=== PATIENT | female | born 2000 | race Caucasian/White ===

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

== ENCOUNTER 2022-07-15 19:51 | Emergency (ER) | payer OTHER, SELFPAY ==
[2022-07-15 19:53] VITALS: BP 119/96; PULSE 115; RESP 20; TEMP 36.6; O2SAT 98; BMI 25.0
--- NOTE | 2022-07-15 20:41 | EDS_ITS ---
HPI History of Present Illness Chief Complaint: Shortness of Breath Informant: patient Narrative Narrative: Presents with tremors starting this morning worsening throughout the day. States sweaty throughout the day she has uncontrolled tears from her eyes. 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 History of reported autoimmune disease followed by rheumatology from [facility] [place]. She states due to her work and pains she sent to physical therapy she is not on any immunosuppressants. Reports was told she was too young. She follows neurology at [facility] also. Her PCP writes for her medications. She states she has prodromal symptoms similar to this when she has her focal seizures. She states however would have syncopal episode when she has a seizures none currently. She has not been on steroids for her reported autoimmune systems. She states feels like hands are warm and swelling and myalgias all over her body. No fevers. No sick contacts. Not vaccinated for influenza or COVID states had COVID in the past without any hospitalizations. Prior similar symptoms: Yes PFSH PFSH Home Medications norgestimate-ethinyl estradiol 0.18 mg/0.215mg/0.25mg-35 mcg(28)tablet 1 tab PO DAILY 09/14/19 [History Last Taken Unknown] prednisone 20 mg tablet 40 mg PO DAILY #12 tabs 07/15/22 [Rx Last Taken Unknown] Allergy/AdvReac Type Severity Reaction Status Date / Time No Known Allergies Allergy Verified 07/15/22 19:57 Social History Smoking Status: Never smoker ROS [facility] ED Constitutional Constitutional ED: Denies chills, fever(s) or sweats Eyes Eyes: Denies change in vision ENT ENT ED: Denies dysphagia or sore throat Cardiovascular Cardiovascular: Denies chest pain, leg edema, palpitations or racing heartbeat Respiratory/Chest Respiratory/Chest: Denies cough, dyspnea or dyspnea on exertion Gastrointestinal Gastrointestinal: Denies abdominal pain, diarrhea, nausea or vomiting Genitourinary Genitourinary ED: Denies dysuria, hematuria or urinary frequency Musculoskeletal Musculoskeletal: Reports arthralgias and myalgias; Denies back pain, extremity pain or neck pain Integumentary Denies rash or wounds Neurologic Neurologic: Reports other Details: Tremors ; Denies headache(s), paresthesias or weakness EXAM Physical Exam Const Vital Signs: 07/15/22 19:53 07/15/22 21:17 07/15/22 22:24 Temperature 97.9 F Temperature Source Temporal Pulse Rate 115 H 94 86 Respiratory Rate 20 H 20 H 16 Respiratory Effort Respiratory Depth Respiratory Pattern Blood Pressure 119/96 H 156/109 H 136/90 H Blood Pressure Mean 103 124 105 Pulse Ox 98 94 Oxygen Delivery Method Room Air Room Air 07/15/22 22:24 07/15/22 23:14 Temperature Temperature Source Pulse Rate 86 Respiratory Rate 16 Respiratory Effort Normal Respiratory Depth Normal Respiratory Pattern Normal Blood Pressure 126/84 H Blood Pressure Mean Pulse Ox Oxygen Delivery Method Positive well nourished and well developed General Appearance ED: well developed and NAD HEENT Reports moist mucous membranes HEENT Narrative: No posterior pharyngeal erythema minimal size tonsils no exudates. Airway patent. No swelling. normocephalic and atraumatic Eyes PERRL, EOMs intact bilaterally and conjunctivae normal General Eye ED: Yes normal appearance of both eyes Neck no lymphadenopathy and supple General: Negative for tenderness Chest Wall Chest: Negative for tenderness Resp normal respiratory effort and normal air movement Effort and Inspection: symmetric chest movement; Negative for respiratory distress Cardio regular rate, regular rhythm and no murmurs Peripheral Pulses: pulses 2+ throughout GI normal to inspection, nondistended, normoactive bowel sounds and non-tender Palpation: Negative for guarding or rebound tenderness present Back/Spine no CVA tenderness and no thoracic nor lumbar tenderness Extremity normal to inspection General Extremety ED: Negative for edema or tenderness General Extremity: Negative for edema Neuro oriented x3, CN's II-XII intact bilaterally and no sensory deficits noted Neuro Narrative: No active tremors. Sensorium / Orientation: awake and alert Skin no rashes or lesions noted and no wounds Skin Narrative: Erythema bilateral hands no wounds or ulcerations. MDM MDM MDM Narrative Medical decision making narrative: Interventions / MDM: Differential diagnosis: COVID, influenza, autoimmune flare Diagnosis considered but do not suspect: Focal seizures, has a history of this however no focal deficits currently. My EKG interpretation: N/A Imaging independently reviewed and interpreted by myself: N/A External documents reviewed: N/A Test considered but not ordered:N/A ED course: History reported autoimmune disorder symptomatic. She was given Solu-Medrol. I did check labs which were all. COVID and influenza get it. Fluids given. Re-evaluation: stable and improved symptoms back to her normal baseline. Discussed and with her she gets monthly symptoms specially with her menstrual periods. Discussed we will put her on a burst steroids for a week. However she will need to discuss with her thoracic medicine specialist for long-term treatment. She understands this. All questions were answered. Disposition discussed with patient/family/significant other: Patient Case discussed with consulting clinician: N/A Lab Data Attestation: I reviewed the patient's lab results. Labs: Laboratory Results - last 24 hr 07/15/22 07/15/22 21:15 21:15 WBC 9.1 RBC 4.47 Hgb 13.2 Hct 39.6 MCV 88.6 MCH 29.5 MCHC 33.3 RDW Std Deviation 40.8 RDW Coeff of Kelsey 12.5 Plt Count 295 MPV 9.7 Immature Gran % (Auto) 0.200 Neut % (Auto) 60.4 Lymph % (Auto) 31.8 Coos % (Auto) 6.2 Eos % (Auto) 0.7 Baso % (Auto) 0.7 Absolute Neuts (auto) 5.5 Absolute Lymphs (auto) 2.90 Nucleated RBC % 0 Sodium 141 Potassium 3.6 Chloride 109 H Carbon Dioxide 25.0 Anion Gap 7 BUN 17 Creatinine 0.74 Estim Creat Clear Calc 117.93 Est GFR (MDRD) Af Amer 127 Est GFR (MDRD) Non-Af 105 BUN/Creatinine Ratio 22.8 H Glucose 95 Calcium 9.4 Discharge Plan Triage Chief Complaint: Shortness of Breath ED Provider: John Sorenson Dx/Rx/DC Orders Clinical Impression: Arthralgia, Myalgia, Tremors of nervous system, Autoimmune disorder Instructions: ED Arthralgia, ED Myalgias Prescriptions: New prednisone 20 mg tablet 40 mg PO DAILY Qty: 12 0RF Rx Instructions: Next dose 07/16/2022 No Action norgestimate-ethinyl estradiol 0.18/0.215/0.25 mg-35 mcg (28) tablet 1 tab PO DAILY Label Comments: TAKE 1 TABLET BY MOUTH ONCE DAILY Primary Care Provider: [facility] Doctor,Out of Referrals: [facility] Doctor,Out of [Primary Care Provider] - Activity Restrictions/Additional Instructions: Labs stable COVID and flu negative. Improved with steroids. Take steroids daily for the next 6 days. Follow-up with your thoracic medicine specialist for further discussion with your recurrent symptoms. Disposition Disposition: Home, Self Care Discharge Date/Time: 07/15/22 23:15
[2022-07-15] MEDS: MethylPREDNISolone 125 MG/2 ML Vial 60 MG IV (21:11)
[2022-07-15 21:17] VITALS: BP 156/109; PULSE 94; RESP 20
[2022-07-15 21:27] LABS: Absolute Neutrophil Count 5.5 X10^3/uL (2.0-7.7); Basophil# 0.06 X10^3/uL; Basophil% 0.7 % (0-1); Eosinophil# 0.06 X10^3/uL; Eosinophils% 0.7 % (0-5); Hematocrit 39.6 % (37-47); Hemoglobin 13.2 g/dL (12.0-15.0); Lymphocyte % 31.8 % (19-41); Mean Corp Hgb Conc 33.3 g/dL (32-36); Mean Corpuscular Hgb 29.5 pg (27.0-32.0); Mean Corpuscular Volume 88.6 fL (81-99); Mean Platelet Vol. 9.7 fl (6.2-12.0); Monocyte# 0.57 X10^3/uL; Monocyte% 6.2 % (0-10); NRBC Flagged by Analyzer 0 % (0-5); Neutrophil # 5.52 X10^3/uL (2.7-7.7); Neutrophil % 60.4 % (47-70); Platelet Count 295 K/mm3 (150-450); RBC Distribution Width CV 12.5 % (11.6-14.6); RBC Distribution Width SD 40.8 fl (35.1-43.9); Red Blood Count 4.47 M/mm3 (4.2-5.4); White Blood Count 9.1 K/mm3 (4.4-11.0)
[2022-07-15 21:42] LABS: Anion Gap 7 (5-15); BUN 17 mg/dL (7-18); BUN/Creat Ratio 22.8 RATIO (10-20); Calcium,Total 9.4 mg/dL (8.5-10.1); Chloride 109 mmol/L (98-107); Creatinine, Serum 0.74 mg/dL (0.55-1.02); EST Glomerular Filtration Rate 105 mL/min (>60); Est Glom Filt Rate - Afr Amer 127 mL/min (>60); Estimated Creatinine Clearance 117.93 ml/min; Glucose 95 mg/dL (74-106); Potassium 3.6 mmol/L (3.5-5.1); Sodium Level 141 mmol/L (136-145)
[2022-07-15 22:24] VITALS: BP 136/90; PULSE 86; RESP 16; O2SAT 94
[2022-07-15 23:14] VITALS: BP 126/84; PULSE 86; RESP 16
== END 2022-07-15 23:15 | disposition home or self-care (01) ==
PROVIDERS: Emergency Provider Emergency Medicine; Visit Provider Emergency Medicine
DX: D89.89 Other specified disorders involving the immune mechanism, not elsewhere classified (principal); R06.02 Shortness of breath; M79.10 Myalgia, unspecified site; R25.1 Tremor, unspecified; Z79.52 Long term (current) use of systemic steroids; M25.50 Pain in unspecified joint; Z20.822 Contact with and (suspected) exposure to COVID-19
CPT/HCPCS: 80048; 85025; 87428; 96361; 96374; 99284; J7040; A4216

== ENCOUNTER 2024-09-24 05:20 | Outpatient (CLI) | payer MEDICAID, SELFPAY ==
[2024-09-24 05:34] VITALS: BMI 36.8
[2024-09-24 05:40] VITALS: BP 120/77; PULSE 76; O2SAT 97
[2024-09-24 05:41] VITALS: RESP 16; TEMP 36
[2024-09-24 05:55] LABS: Color, Urine Yellow (Yellow); Glucose, Dipstick Normal (Normal); Ketone-Dipstick Negative (Negative); Leukocyte Esterase-Dipstick 25 /ul (Negative); Nitrite-Dipstick Negative (Negative); Occult Blood-Urine Negative /ul (Negative); Protein-Dipstick 15 mg/dl (Negative); Urine Bilirubin Dipstick Negative (Negative); Urine Clarity Clear (Clear); Urine Urobilinogen 1 mg/dl (Normal)
[2024-09-24 05:56] LABS: Red Blood Cells-Urine 0 SEEN /hpf (0-5)
[2024-09-24 06:37] LABS: Amorphous Sediment 2+; Bacteria 3+ /hpf (None Seen); Mucous, Urine 1+ /hpf (<or=2+); Squamous Epithelial Cells - UA 0-5 SEEN /hpf (5-10); White Blood Cells 0-5 SEEN /hpf (0-5)
--- NOTE | 2024-09-24 07:55 | OB.TRI.NOTE ---
HPI - General HPI Narrative NAILA MCKEON, is a 24 F G1 at 33 weeks gestation who presents with lower abdominal cramps. She denies any loss of fluid, vaginal bleeding or severe pain. Positive movements. PFSH PFSH Home Medications ?Medication ?Instructions ?Recorded ?Last Taken ?Type norgestimate-ethinyl estradiol 1 tab PO DAILY 09/14/19 Unknown History 0.18 mg/0.215mg/0.25mg-35 mcg(28)tablet Held on 09/24/24. Instructions: MD Ordered prednisone 20 mg tablet 40 mg (2 x 20 mg) PO DAILY #12 tabs 07/15/22 Unknown Rx Held on 09/24/24. Instructions: MD Ordered aspirin 81 mg chewable tablet 2 tab PO QDAY 09/24/24 09/22/24 08:00 History (Aspirin Childrens) escitalopram oxalate 20 mg tablet 20 mg PO DAILY 09/24/24 09/22/24 08:00 History (Lexapro) vitamin#30 30 mg iron-10 cap PO 09/24/24 09/22/24 08:00 History mg iron-folic acid 1 mg-omg3 capsule Allergy/AdvReac Type Severity Reaction Status Date / Time No Known Allergies Allergy Verified 09/24/24 05:31 Social History Smoking Status: Never smoker ROS Eyes Eyes: Denies blurry vision Cardiovascular Cardiovascular: Reports none; Denies chest pain at rest, chest pain with activity or dizziness Respiratory/Chest Respiratory/Chest: Denies cough or dyspnea Gastrointestinal Gastrointestinal: Reports none and other; Denies diarrhea or vomiting Genitourinary Genitourinary: Denies dysuria Musculoskeletal Musculoskeletal: Reports none Integumentary Integumentary: Reports none; Denies rash Neurologic Neurologic: Denies dizziness, headache(s) or other visual disturbances Psychiatric Psychiatric: Reports none Physical Exam Const alert and no apparent distress General Appearance: cooperative Orientation / Consciousness: awake Exam Limitations: no limitations HEENT normocephalic Eyes General Eye: normal appearance of both eyes Neck full ROM Chest inspection of chest normal Resp normal respiratory effort and normal air movement Effort and Inspection: symmetric chest movement Auscultation: clear to auscultation bilaterally Cardio regular rate GI soft to palpation, non-tender and non-distended Inspection: and other Back/Spine normal ROM Extremity full ROM, normal capillary refill and no calf tenderness Skin no rashes or lesions noted Neuro oriented x3 and CN's II-XII intact bilaterally Psych mental status grossly normal NST FHR Rate Baby A Baseline: 125 Variability:: Moderate Accelerations:: 15 x 15 Decelerations:: None NST Reactive:: Yes Uterine Activity:: irritability Assessment & Plan (1) 33 weeks gestation of : (2) Abdominal cramping: (3) Dehydration: PLAN: Plan Patient taking PO fluids over IV C/o round ligament pain No contractions palpated D.C home with follow up in office this week.
== END 2024-09-24 06:50 | disposition home or self-care (01) ==
LOC: WPOUT 05:26 → WP 05:27
PROVIDERS: Visit Provider Advanced Practice Midwife
DX: O99.891 Other specified diseases and conditions complicating pregnancy (principal); O99.283 Endocrine, nutritional and metabolic diseases complicating pregnancy, third trimester; R10.30 Lower abdominal pain, unspecified; E86.0 Dehydration; Z79.899 Other long term (current) drug therapy; Z79.82 Long term (current) use of aspirin; Z3A.33 33 weeks gestation of pregnancy
CPT/HCPCS: 59025; 59050; 81001; 99221; G0378

== ENCOUNTER 2024-10-13 10:45 | Outpatient (CLI) | payer MEDICAID, SELFPAY ==
[2024-10-13 11:14] VITALS: BP 134/82; PULSE 72
--- NOTE | 2024-10-13 11:14 | US_ITS ---
PROCEDURE: BIOPHYSICAL PROF W/O NON STRES 10/13/2024 REASON FOR EXAM: NON REACTIVE NST TECHNIQUE: High resolution obstetric ultrasound performed using a 2D transducer. Standard views obtained, including biometry, anatomy survey, and Doppler studies. COMPARISON: None FINDINGS Number: 1 Position: Vertex Placental Position: Anterior and not low-lying. Placental Abnormalities: None ESTIMATED GESTATIONAL AGE: Baseline: 35 weeks and 6 days ESTIMATED DATE OF DELIVERY: Baseline: November 11, 2024 BIOPHYSICAL ASSESSMENT: Amniotic Fluid Volume: 8.9 cm Amniotic Fluid Index: 20.8 (8-24 cm normal range) Cardiac Motion: 130 beats per minute (average) Trunk and Limb Motion: Present. MATERNAL ANATOMY: Adnexa: Neither maternal ovary is successfully identified. Biophysical profile: Breathing movements: 2 Gross body movements: 2 tone: 2 Amniotic fluid volume: 2 Total score: 8/8 US/Biophysical Prof W/O Non Stres IMPRESSION: Normal biophysical profile. Reading Location: [facility]
[2024-10-13 11:17] VITALS: BMI 36.6
--- NOTE | 2024-10-13 12:58 | OB.TRI.HP_ITS ---
HPI - General General Date of Service: 10/13/24 HPI Narrative NAILA MCKEON, is a 24 F @ 35.6 weeks who presents from office for BPP and NST due to non reactive NST and low baseline in office. pt has h/o Polyhydramnios PFSH PFSH Home Medications ?Medication ?Instructions ?Recorded ?Last Taken ?Type aspirin 81 mg chewable tablet 2 tab PO QDAY 09/24/24 0 10/12/24 History (Aspirin Childrens) escitalopram oxalate 20 mg tablet 20 mg PO DAILY 09/2410/12/24 History (Lexapro) vitamin#30 30 mg iron-10 1 cap PO DAILY pregn flakita 09/24/24 10/12/24 History mg iron-folic acid 1 mg-omg3 capsule Allergy/AdvReac Type Severity Reaction Status Date / Time No Known Allergies Allergy Verified 10/13/24 12:15 Social History Smoking Status: Never smoker NST FHR Rate Baby A Baseline: 120 Variability:: Moderate Accelerations:: 15 x 15 Decelerations:: None NST Reactive:: Yes FHR Category:: Category I Uterine Activity:: no ctx Assessment & Plan (1) Polyhydramnios affecting : (2) Abnormal test: (3) 35 weeks gestation of : PLAN: Plan @ 35.6 weeks - well being established dc home- follow up as scheduled for NSt next week kick counts
== END 2024-10-13 13:08 | disposition home or self-care (01) ==
LOC: WPOUT 10:50 → WP 10:50
PROVIDERS: Referring Provider Obstetrics & Gynecology; Visit Provider Obstetrics & Gynecology
DX: O40.3XX0 Polyhydramnios, third trimester, not applicable or unspecified (principal); O28.8 Other abnormal findings on antenatal screening of mother; Z3A.35 35 weeks gestation of pregnancy
CPT/HCPCS: 59025; 59050; 76819; 99221; G0378

== ENCOUNTER 2024-10-23 19:15 | Inpatient (IN) | payer MEDICAID, SELFPAY ==
[2024-10-23 19:19] VITALS: BMI 38.8
[2024-10-23 19:39] VITALS: BP 141/85; PULSE 85
[2024-10-23 20:20] VITALS: BP 135/89; PULSE 77; RESP 16; TEMP 36.2; O2SAT 96
[2024-10-23] MEDS: miSOPROStol 25 MCG TABLET VAGINAL (20:25)
[2024-10-23 20:45] LABS: Absolute Lymphocyte Count 1.43 X10^3/uL (0.83-4.51); Absolute Neutrophil Count 6.2 X10^3/uL (2.0-7.7); Basophil# 0.02 X10^3/uL; Basophil% 0.2 % (0-1); Eosinophil# 0.08 X10^3/uL; Eosinophils% 0.9 % (0-5); Hematocrit 31.7 % (37-47); Hemoglobin 10.9 g/dL (12.0-15.0); Lymphocyte # 1.43 X10^3/ul (0.83-4.51); Lymphocyte % 16.8 % (19-41); Mean Corp Hgb Conc 34.4 g/dL (32-36); Mean Corpuscular Hgb 29.6 pg (27.0-32.0); Mean Corpuscular Volume 86.1 fL (81-99); Monocyte# 0.77 X10^3/uL; Monocyte% 9.1 % (0-10); NRBC Flagged by Analyzer 0 % (0-5); Neutrophil # 6.16 X10^3/uL (2.7-7.7); Neutrophil % 72.6 % (47-70); Platelet Count 236 K/mm3 (150-450); RBC Distribution Width CV 12.3 % (11.6-14.6); RBC Distribution Width SD 38.4 fl (35.1-43.9); Red Blood Count 3.68 M/mm3 (4.2-5.4); White Blood Count 8.5 K/mm3 (4.4-11.0)
[2024-10-23 21:14] LABS: Syphilis Antibodies Nonreactive (Nonreactive)
[2024-10-24] VITALS (43 sets, daily range): BP systolic 102–149; BP diastolic 55–96; PULSE 64–143; RESP 16; TEMP 36.2–36.8; O2SAT 82–100
[2024-10-24] MEDS: miSOPROStol 25 MCG TABLET VAGINAL (00:28)
[2024-10-24] MEDS: Lactated Ringers 1,000 ML 50 ML IV ×2 (05:15→14:28)
[2024-10-24] MEDS: LACTATED RINGERS 500 ML 999 ML IV (05:16)
[2024-10-24] MEDS: Oxytocin 15 Units/NS 250ml 15 UNITS/250 ML IV.SOLN 2 UNITS IV (06:25)
--- NOTE | 2024-10-24 08:55 | HP.PCM.OB_ITS ---
HPI - General General Date of Admission: 10/23/24 HPI Narrative NAILA MCKEON, is a 24 F who presents for induction. Maternal Data Information OSMANI Calculator Estimated Delivery Date Method Current WG Current Estimate 11/11/24 [facility] History (Updated 10/24/24 @ 08:[address] Lucía Rivas MD) Chronic hypertension Polyhydramnios Home Medications ?Medication ?Instructions ?Recorded ?Last Taken ?Type aspirin 81 mg chewable tablet 2 tab PO QDAY 09/24/24 10/23/24 History (Aspirin Childrens) escitalopram oxalate 20 mg tablet 20 mg PO DAILY depre ssion 09/24/24 10/23/24 History (Lexapro) vitamin#30 30 mg iron-10 1 cap PO DAILY pregn flakita 09/24/24 10/23/24 History mg iron-folic acid 1 mg-omg3 capsule Allergy/AdvReac Type Severity Reaction Status Date / Time No Known Allergies Allergy Verified 10/23/24 19:45 Social History Smoking Status: Never smoker History Elective abortions Hx Para 0 Spontaneous abortions Hx # Term Pregnancies Ectopic pregnancies Hx # Pregnancies Multiple births # of living children NST FHR Rate Baby A Baseline: 130 Variability:: Moderate Accelerations:: 15 x 15 Decelerations:: None Uterine Activity:: irritability Vital Signs Vital Signs Vital Signs: 10/23/24 19:39 10/23/24 19:39 10/23/24 20:20 Temperature Temperature Source Pulse Rate 85 Respiratory Rate Blood Pressure 141/85 H 135/89 H BP Systolic 141 135 BP Diastolic 85 89 Pulse Ox 10/23/24 20:20 10/23/24 20:20 10/23/24 20:20 Temperature Temperature Source Temporal Pulse Rate 77 Respiratory Rate Blood Pressure BP Systolic BP Diastolic Pulse Ox 96 10/23/24 20:20 10/23/24 20:20 10/24/24 00:15 Temperature 97.1 F L Temperature Source Pulse Rate Respiratory Rate 16 Blood Pressure 125/71 H BP Systolic 125 BP Diastolic 71 Pulse Ox 10/24/24 00:15 10/24/24 00:15 10/24/24 04:00 Temperature Temperature Source Pulse Rate 83 Respiratory Rate Blood Pressure 104/59 L BP Systolic 104 BP Diastolic 59 Pulse Ox 98 10/24/24 04:00 10/24/24 04:00 10/24/24 04:00 Temperature Temperature Source Temporal Pulse Rate 64 Respiratory Rate Blood Pressure BP Systolic BP Diastolic Pulse Ox 97 10/24/24 04:00 10/24/24 04:00 10/24/24 06:18 Temperature 97.2 F L Temperature Source Pulse Rate 143 H Respiratory Rate 16 Blood Pressure BP Systolic BP Diastolic Pulse Ox 10/24/24 06:18 10/24/24 07:41 10/24/24 07:41 Temperature Temperature Source Temporal Pulse Rate Respiratory Rate 16 Blood Pressure BP Systolic BP Diastolic Pulse Ox 82 10/24/24 07:41 10/24/24 07:42 10/24/24 07:42 Temperature 97.3 F L Temperature Source Pulse Rate 73 Respiratory Rate Blood Pressure 118/73 BP Systolic 118 BP Diastolic 73 Pulse Ox 10/24/24 08:00 10/24/24 08:00 10/24/24 08:47 Temperature Temperature Source Pulse Rate 73 Respiratory Rate Blood Pressure 125/84 H BP Systolic 125 BP Diastolic 84 Pulse Ox 99 10/24/24 08:47 Temperature Temperature Source Pulse Rate 75 Respiratory Rate Blood Pressure BP Systolic BP Diastolic Pulse Ox Weight Weight: 240 lb 9.6 oz Body Mass Index (BMI) 38.8 Physical Exam Chest inspection of chest normal GI soft to palpation, non-tender and non-distended Inspection: gravid external exam normal Narrative: cvx - 2.5/80/-3, intracervical franks placed Labs Labs Labs: Blood Type B NEGATIVE Antibody Screen NEGATIVE Hct 31.7 % (37-47) L Hgb 10.9 g/dL (12.0-15.0) L Syphilis Total Ab Nonreactive (Nonreactive) Assessment & Plan (1) Polyhydramnios affecting : (2) Chronic hypertension: PLAN: Plan Admit to L&D Induction - Cytotec overnight. This AM intracervical franks placed and pitocin started. After franks out cervical check was 5cm and AROM occurred at that time for clear fluid. Pain - epidural. GBS negative. EFW - less than 4500g and patient with adequate pelvis. Routine care.
[2024-10-24] MEDS: 0.9% Normal Saline Single 100 ML IV.SOLN. INTRA-UTER ×2 (09:32→09:35)
[2024-10-24] MEDS: Ondansetron 4 MG/2 ML Vial IV (09:32)
[2024-10-24] MEDS: fentaNYL-bupivacaine (epidural) 100 ML BAG EPIDURAL ×2 (10:09→14:28)
[2024-10-24] MEDS: Oxytocin 15 Units/NS 250ml 15 UNITS/250 ML IV.SOLN 334 UNITS IV (15:40)
--- NOTE | 2024-10-24 15:49 | EX.PCM.OBVAG ---
Maternal Data Information OSMANI Calculator Estimated Delivery Date Method Current WG Current Estimate 11/11/24 Manual 37w 3d Vaginal Delivery Maternal Presentation Maternal Presentation: Medically Indicated Induction Type of Induction: Pitocin, Roa Bulb, Amniotomy and Cytotec Medical Reason for Induction: Maternal Medical Condition: list: (Chronic hypertension) Vaginal Delivery Information Procedure Performed: Vacuum Assisted Vaginal Delivery Station at time of placement: +2 Number of vacuum pulls: 2 Number of vacuum pop offs: 0 Surgeon/Practitioner: Lucía Rivas Date of Procedure: 10/24/24 Pre-Procedure Diagnosis: (1) Chronic hypertension (2) Polyhydramnios Post-Procedure Diagnosis: Same Type of anesthesia: Epidural Estimated Blood Loss: 300ml Findings Description of procedure: Went to room when patient C/C/+2. Patient with FHR decelerations and pushing for over 2 hours. Discussed R/B/A and patient elected to proceed with vacuum assisted delivery. head position confirmed. Vacuum placed on head and position confirmed. Gentle traction applied to vacuum with next contraction and maternal push. Vacuum released and placed with next contraction. Vacuum placed on head again and position confirmed. Gentle traction applied with next contraction and maternal push. head delivered and vacuum released. head guided to deliver anterior and posterior shoulders. Body delivered and placed on maternal abdomen. 3VC clamped and cut in delayed fashion. Placenta delivered with gentle traction. Good uterine tone obtained. Presentation: LUCHO Amniotic Membrane Rupture Type: Artificial Amniotic Fluid Description: Clear Placental Delivery Description: Expressed Placenta Disposition: [facility] Specimen collected: No Cord Vessel Description: 3 Vessels Cord Entanglement: Around neck x 1, loose Nuchal Cord Compression: With compression Infant A Gender: Male (1 minute): 8 (5 minute): 9 Delayed Cord Clamping: Yes Charge Account Identification Clerk inspector watch parts: No Post Vaginal Deli Medications given after delivery: IV Pitocin Episiotomy Description: None Laceration: 2nd degree (perineal - repaired with 3-0 vicryl) Complication Complications: No
[2024-10-24] MEDS: Oxytocin 15 Units/NS 250ml 15 UNITS/250 ML IV.SOLN 83 UNITS IV (16:10)
[2024-10-24] MEDS: Rho(D) Immune Globulin 300 MCG (1500 Unit) Syringe IV (21:58)
[2024-10-24] MEDS: DiphenhydrAMINE 25 MG Capsule PO (22:00)
[2024-10-24] MEDS: Ibuprofen 600 MG Tablet PO (23:18)
[2024-10-25 03:39] VITALS: BP 97/67; PULSE 89; RESP 14; TEMP 36.2; O2SAT 98
[2024-10-25] MEDS: Acetaminophen 500 MG Tablet 1000 MG PO ×3 (03:43→22:22)
[2024-10-25] MEDS: Ibuprofen 600 MG Tablet PO ×2 (05:28→16:17)
--- NOTE | 2024-10-25 08:17 | PCM.PN.OB ---
Subjective Subjective Doing well. Ambulating and voiding without difficulty. Mild lochia. Breast feeding. Objective Data Objective Data Vital Signs: Vital Signs Temp Pulse Resp BP Pulse Ox O2 Del Method 97.1 F L 89 14 97/67 98 Room Air 10/25/24 03:39 10/25/24 03:39 10/25/24 03:39 10/25/24 03:39 10/25/24 03:39 10/25/24 03:39 Oxygen Delivery Method Room Air Weight: 109.134 kg Body Mass Index (BMI) 38.8 Intake & Output: Intake and Output for Last 24 Hours 10/23/24 10/24/24 10/25/24 23:59 23:59 23:59 Intake Total 1492.36 / 1492.36 Output Total 900 / 900 Balance 592.36 / 592.36 Lab / Micro Data 10/23/24 19:35 Labs: Laboratory Results - last 24 hr 10/24/24 18:40: Screen NEGATIVE, Baby's Blood Type O POSITIVE, Baby's XIOMARA NEGATIVE ROS Constitutional Constitutional: Denies headache(s) Cardiovascular Cardiovascular: Denies chest pain or dyspnea Gastrointestinal Gastrointestinal: Denies nausea or vomiting Genitourinary Genitourinary: Denies dysuria Physical Exam Const alert, oriented x3 and no apparent distress General Appearance: cooperative and comfortable Eyes PERRL and EOMs intact bilaterally Resp normal respiratory effort GI soft to palpation and non-tender Uterus Palpation: uterus fundus firm ( below umbilicus) Extremity normal to inspection and full ROM Neuro oriented x3 and CN's II-XII intact bilaterally Psych mental status grossly normal Assessment & Plan (1) Chronic hypertension: (2) Polyhydramnios affecting : (3) Vacuum extractor delivery, delivered: PLAN: Routine PP care Follow BP
[2024-10-25 10:00] VITALS: BP 133/74; PULSE 90; RESP 18; TEMP 36.1; O2SAT 98
[2024-10-25 12:40] VITALS: BP 109/87; PULSE 80; RESP 16; TEMP 36.5; O2SAT 99
--- NOTE | 2024-10-25 15:01 | CASEMGMT ---
Social Work Assessment Labor and Delivery Unit Patient Address: [address] [place] [address] Phone number: [phone] Date of Referral: 10/23/24 Time of Referral:? 2005 Referred By: Dr. Woodall Date of Intervention: ??10/25/24 Time of Intervention:? 1430 Reason for Referral:? OCD and PTSD. Parent's alcohol/ drug use Sw completed chart review and acknowledges social work consult due to maternal mental health history and family history of substance use. Sw presented to bedside and introduced self to mother of baby (PURNIMA- Tatyana) and father of baby (FORolly- Estuardo Dunaway). Sw explained reason for sw involvement and completed psychosocial assessment. History obtained from: medical records, MOB and FOB Household composition: Currently residing in the family home is PURNIMA, MAYDA and PURNIMA's sister. PURNIMA states that her sister is moving to [place] in December. Henrietta baby to be included in residence when ready for discharge. Parents deny any problems or concerns with housing, stating that it is safe and secure. Patient's parent/guardian status:? ?PURNIMA states that she and MAYDA have known each other for a while because they work together at [employer]. They have been seeing each other for two years now. baby is first baby for both parents. No concerns reported regarding domestic violence or intimate partner violence. Medical History: PURNIMA is 24 year old female who is 1, para 0- now 1 following labor and delivery of . PURNIMA received routine care during with [facility]. PURNIMA presented to hospital on 10/24/24 at 37 weeks gestation and delivered baby via vaginal delivery. Baby boy, named Luis, was born weighing 7lb and had apgars of 8 and 9 at one and five minutes of life, respectfully. PURNIMA states that she is breast feeding and baby will be followed by Dr. Jameson for pediatrics. ? Educational Status:? Both parents graduated high school. PURNIMA attended some college and MAYDA obtained his Associates degree. No problems with reading, learning or comprehension. Financial Status: both parents are employed outside of the home working at [employer]. Supplies:?? All necessary baby supplies obtained, including: car seat, safe sleep space, clothes, diapers and wipes. Childcare/Caregiver(s):? PURNIMA states that she will be the primary caregiver to baby while she is on maternity leave, but when both parents have returned to work paternal grandma will baby sit. Transportation:?Both parents have their drivers license and reliable means of transportation. ? Programs/Agencies Involved: ??Parents are over income for community resources. ? Children Services/Legal Issues:??? No history of children services involvement. No issues or concerns warranting referral to be made. Behavioral Health Issues: ??Mental Health History:?FPB denies mental health history. MOB states that she has been diagnosed with anxiety, depression, PTSD and OCD. MOB reports that she is prescribed citalopram to help manage her mental health symptoms. MOB states that she has felt managed throughout and feels fine now that baby is born. ?? Substance Use History:?Parents deny substance use prior to and during . ? Family History:??Parents deny family history of substance use or significant mental health diagnoses. ??? Drug Screens: ??No drug screens observed while completing chart review. Family/Social Stressors:? Parents deny any problems, concerns or stressors. Support Systems: MOB identifies that FOB and both sets of grandparents are supportive. Depression/Shaken Baby/Safe Sleeping:?Magaly educated parents on signs and symptoms of baby blues and depression and anxiety. MOB states that she has been informed of what symptoms to be mindful of, and has a psychiatrist that she meets with regularly to ensure that she is doing well. MOB states that she feels comfortably talking to FOB about her mental health if she were to struggle. FOB states that he hopes that if she would have a hard time he would be able to recognize that and would know how to help her. Magaly encouraged parents to talk about things that would help MOB. Sw educated parents on shaken baby prevention and ABCs of safe sleep, parents express understanding. ASSESSMENT:? MOB and baby admitted following labor and delivery of . MOB and FOB both present for completion of assessment. MOB and FOB both engaging and conversational during conversation. MOB with mental health history and is connected to mental health supports that prescribe medication to help her manage her symptoms. MOB states that there isn't one thing that is triggering for her, but her symptoms seem to present themselves during the worst times. MOB states that FOB is supportive and he has helped her mental health a lot since they have been in a relationship. Parents have natural supports in place and have obtained all necessary baby items. While meeting with parents baby was getting circumcised so sw did not observe parents interactions. Both parents repot to feeling a connection/ gustafson with baby. PLAN:? No other services requested or indicated. MOB and baby to be discharged when medically ready. Parents were provided literature regarding: signs and symptoms of baby blues and mood and anxiety disorders, Help Me Grow, shaken baby prevention, ABCs of safe sleep and a list of [facility] resources that are available for them should any needs present themselves. Gracy Obrien, JUKEBOX OPERATOR, FLOOR WINDER
[2024-10-25 16:22] VITALS: BP 99/59; PULSE 82; RESP 16; TEMP 36.6; O2SAT 98
[2024-10-25 21:25] VITALS: BP 135/80; PULSE 89; RESP 16; TEMP 36.4; O2SAT 98
--- NOTE | 2024-10-25 21:35 | NURSING ---
RN attempted to come back to do VS at 2130 and 2100 to do VS and assessment. Patient on couch nursing baby. RN verbalized understanding and abided to patients wishes.
[2024-10-26 03:14] VITALS: BP 130/89; PULSE 88; RESP 16; TEMP 36.3; O2SAT 98
[2024-10-26] MEDS: Ibuprofen 600 MG Tablet PO (03:26)
--- NOTE | 2024-10-26 06:54 | PCM.PN.OB ---
Subjective Subjective Doing well. Ambulating and voiding without difficulty. Mild lochia. Breast feeding. Objective Data Objective Data Vital Signs: Vital Signs Temp Pulse Resp BP Pulse Ox O2 Del Method 97.4 F L 88 16 130/89 H 98 Room Air 10/26/24 03:14 10/26/24 03:14 10/26/24 03:14 10/26/24 03:14 10/26/24 03:14 10/26/24 03:14 Oxygen Delivery Method Room Air Weight: 109.134 kg Body Mass Index (BMI) 38.8 Intake & Output: Intake and Output for Last 24 Hours 10/24/24 10/25/24 10/26/24 23:59 23:59 23:59 Intake Total 1492.36 / 1492.36 240 / 240 Output Total 900 / 900 Balance 592.36 / 592.36 240 / 240 Lab / Micro Data 10/23/24 19:35 ROS Constitutional Constitutional: Denies headache(s) Cardiovascular Cardiovascular: Denies chest pain or dyspnea Gastrointestinal Gastrointestinal: Denies nausea or vomiting Genitourinary Genitourinary: Denies dysuria Physical Exam Const alert and no apparent distress Narrative: Fundus firm, below umbilicus. Assessment & Plan (1) Chronic hypertension: (2) Vacuum extractor delivery, delivered: PLAN: Plan Discharge home
--- NOTE | 2024-10-26 06:54 | PCM.DC.SUM ---
Providers Date of Admission: 10/23/24 Date of Discharge: 10/26/24 Primary Care Physician: No Primary Care Phys Reason For Visit: VAGINAL DELIVERY Diagnosis Discharge Diagnosis (1) Chronic hypertension: Status: Chronic Code(s): I10 - Essential (primary) hypertension (2) Polyhydramnios affecting : Status: Acute Code(s): O40.9XX0 - Polyhydramnios, unspecified trimester, not applicable or unspecified (3) Vacuum extractor delivery, delivered: Status: Acute Code(s): O75.9 - Complication of labor and delivery, unspecified Plan: Routine PP care Follow BP Medications at Discharge Home Medications escitalopram oxalate 20 mg tablet (Lexapro) 20 mg PO DAILY depression 09/24/24 vitamin#30 30 mg iron-10 mg iron-folic acid 1 mg-omg3 capsule 1 cap PO DAILY 09/24/24 acetaminophen 500 mg tablet 1,000 mg (2 x 500 mg) PO Q6H PRN PRN Pain 1-10 Or Fever #30 tabs 10/26/24 Hospital Course Operations None Procedures None Summary of Care Provided Minutes Spent on Discharge: 20 Hospital Course: IOL for CHTN. Vacuum assisted vaginal delivery. Breast feeding Physical Exam Const alert and no apparent distress Narrative: Fundus firm, below umbilicus. Weight / BMI Weight Weight: 109.134 kg Body Mass Index (BMI) 38.8 ABG / Lab / Microbiology Data 10/23/24 19:35 D/C Instructions May resume sexual activity in: 6 weeks DC O2, CPAP, BIPAP Needs Home O2 Discharge instructions: No Please Follow Up With: Maria Eugenia Whitman MD When: Follow up with our office in 1-2 and 6 weeks or as needed. [phone] Meaningful Use Info Meaningful Use Meaningful Use Diagnoses (Choose all that apply): None applicable Ischemic Stroke Statin Dosing Therapy Reference: STATIN DOSE THERAPY REFERENCE: * Patients > 75 years receive moderate or high dose statin therapy. * Patients 75 years or YOUNGER should receive HIGH intensity statin dose unless contraindicated. You will be required to document reason for non-treatment if statin daily dose does not meet guidelines. HIGH DOSE STATIN THERAPY DAILY Atorvastatin > than or = to 40 mg Rosuvastatin > than or = to 20 mg Amlodipine + Atorvastatin > than or = to 2.5/40 mg Ezetimibe + Simvastatin 10/80 mg Simvastatin 80mg Discharge Plan Admission Admit Date/Time: 10/23/24 19:15 Primary Reason for Your Visit: delivery Attending Provider: Lucía Rivas Primary Care Provider: Care PhysicianOlive Primary Discharge Orders/Prescriptions Prescriptions: New acetaminophen 500 mg Tablet 1,000 mg PO Q6H PRN PRN (Reason: Pain 1-10 Or Fever) Qty: 30 0RF Continued PNV #[id number] 30 mg iron-10 mg iron-1 mg capsule 1 cap PO DAILY escitalopram oxalate [Lexapro] 20 mg tablet 20 mg PO DAILY Discontinued aspirin [Aspirin Childrens] 81 mg tablet,chewable 2 tab PO QDAY Referrals / Follow Up: Care Physician,No Primary [Primary Care Provider] - Disposition Disposition (needs filled in before D/C Order can be placed): Home, Self Care
[2024-10-26 08:49] VITALS: PULSE 80; RESP 14; TEMP 36.2; O2SAT 99
== END 2024-10-26 10:15 | disposition home or self-care (01) | DRG 560 ==
PROVIDERS: Obstetrics & Gynecology; Admitting Provider Obstetrics & Gynecology; Referring Provider Obstetrics & Gynecology; Visit Provider Obstetrics & Gynecology
DX: O10.92 Unspecified pre-existing hypertension complicating childbirth (principal); Z37.0 Single live birth; O40.3XX0 Polyhydramnios, third trimester, not applicable or unspecified; O76 Abnormality in fetal heart rate and rhythm complicating labor and delivery; O69.81X0 Labor and delivery complicated by cord around neck, without compression, not applicable or unspecified; O70.1 Second degree perineal laceration during delivery; Z3A.37 37 weeks gestation of pregnancy; Z79.82 Long term (current) use of aspirin; Z79.899 Other long term (current) drug therapy
CPT/HCPCS: 59025; 59050; 85025; 85461; 86780; 86850; 86900; 86901; 90384; 99221; G0378; J2405; J2790; J2791